=== PATIENT | female | born 1995 | race Caucasian/White ===

== ENCOUNTER → 2016-09-22 | Outpatient (CLI) | payer BC | LOC: KOH-I 12:31 | DX: R05 Cough (principal); R07.89 Other chest pain | CPT/HCPCS: 71020 ==

== ENCOUNTER 2016-12-23 | Emergency (ER) | payer BC | END 2016-12-23 03:52 | disposition home or self-care (01) | LOC: ER1 | DX: Z53.21 Procedure and treatment not carried out due to patient leaving prior to being seen by health care provider (principal) | CPT/HCPCS: 93005 ==